=== PATIENT | male | born 1990 | race Two or more races ===

== ENCOUNTER 2025-01-25 22:17 | Emergency (ER) | payer MEDICAID, SELFPAY ==
[2025-01-25 22:18] VITALS: BP 150/90; PULSE 91; RESP 18; TEMP 37.3; O2SAT 97; BMI 30.7
--- NOTE | 2025-01-25 22:52 | PD.EDSKIN ---
ED Skin Abcess FB-RME/HPI General Chief complaint: Skin/Abscess/Foreign Body Stated complaint: REDNESS AND SWELLING TO R LOWER LEG Time Seen by Provider: 01/25/25 22:26 Arrival date/time: 01/25/25 22:17 This is a case of 34-year-old male who came in in the emergency room noted to have redness pain on the right anterior leg no swelling associated with fever and chills patient cannot remember any injury or trauma denies any numbness weakness or tingling sensation denies any other symptoms Limitations: no limitations Related Data Previous Rx's ?Medication ?Instructions ?Recorded ibuprofen 800 mg tablet (IBU) 800 mg PO TID PRN pain #30 tabs 07/28/20 diclofenac sodium 50 mg 50 mg PO BID #20 tabs 04/15/22 tablet,delayed release clindamycin HCl 300 mg capsule 300 mg PO Q6H 10 days #40 caps 01/25/25 doxycycline monohydrate 100 mg 100 mg PO BID 10 days #20 caps 01/25/25 capsule ibuprofen 800 mg tablet 800 mg PO Q8H PRN pain #20 tabs 01/25/25 Allergies Allergy/AdvReac Type Severity Reaction Status Date / Time NKA* Allergy Uncoded 01/25/25 22:22 Review of Systems Review of Systems Systems Reviewed: All systems reviewed, normal except as documented Constitutional Constitutional: Reports system reviewed and no additional complaints, except as documented, Reports as per HPI, Reports chills and Reports fever(s) Cardiovascular Cardiovascular: Reports system reviewed and no additional complaints, except as documented and Reports as per HPI Respiratory Respiratory: Reports system reviewed and no additional complaints, except as documented and Reports as per HPI Gastrointestinal Gastrointestinal: Reports system reviewed and no additional complaints, except as documented, Reports as per HPI and Denies abdominal pain Genitourinary Genitourinary: Reports system reviewed and no additional complaints, except as documented Integumentary/Breasts Skin/Breast: Reports other (Cellulitis) Neurologic Neurologic: Reports system reviewed and no additional complaints, except as documented and Reports as per HPI Past Medical History Past Medical History CARDIAC: Negative Congestive Heart Failure RESPIRATORY: Negative Chronic Obstructive Pulmonary Disease (COPD) GENITOURINARY: Negative Renal Disease ENDOCRINE: Negative Diabetes Mellitus Type 1 or Diabetes Mellitus Type 2 Social History SMOKING STATUS: Never smoker ED Exam General Limitations: Present no limitations General appearance: Present alert, in no apparent distress and other (Patient is awake alert oriented not in distress nontoxic looking well-hydrated well-nourished) Head Head exam: Present atraumatic, normocephalic and normal inspection Eye Eye exam: Present normal appearance, PERRL and EOMI ENT ENT exam: Present normal exam, normal oropharynx, mucous membranes moist and other (Normal HEENT exam) Neck Neck exam: Present normal inspection, full ROM and trachea midline; Absent tenderness, meningismus, lymphadenopathy or thyromegaly Chest Chest inspection: Present normal inspection and symmetric chest wall rise; Absent tenderness Respiratory Respiratory exam: Present normal lung sounds bilaterally; Absent respiratory distress, wheezes, stridor, accessory muscle use or prolonged expiratory phase Cardiovascular Cardiovascular exam: Present regular rate, normal rhythm and normal heart sounds; Absent bradycardia, tachycardia, irregular rhythm, systolic murmur or diastolic murmur Abdominal Exam Abdominal exam: Present soft and normal bowel sounds; Absent distention, tenderness, guarding, rebound, rigidity, diminished bowel sounds, hyperactive bowel sounds, hypoactive bowel sounds or organomegaly Extremities Exam Extremities exam: Present normal inspection and full ROM Expanded Lower Extremity Exam Lower leg exam: Present full ROM, tenderness (Mild tenderness on the anterior right leg) and erythema; Absent swelling, abrasion, laceration, ecchymosis, deformity, crepitus, dislocation, palpable cord, Homans' sign or Achilles tendon intact Back Exam Back exam: Present normal inspection and full ROM Neurological Exam Neurological exam: Present alert, oriented X3, CN II-XII intact, normal gait and reflexes normal; Absent motor sensory deficit Psychiatric Psychiatric exam: Present normal affect and normal mood Skin Skin exam: Present warm, dry, intact, normal color and other (Noted redness approximately 4 x 4 cm right anterior leg suggestive of cellulitis no abscess no wound no ulcer) Course Quality Measures none Orders Category Date Time Status Clindamycin Vial [Cleocin vial] Med 01/25/25 22:48 Once 600 mg IM X1 ONE Ibuprofen Tab [Motrin Tab] Med 01/25/25 22:48 Once 800 mg PO X1 ONE Vital Signs Vital signs: Vital Signs Temperature 99.1 F 01/25/25 22:18 Pulse Rate 91 01/25/25 22:18 Respiratory Rate 18 01/25/25 22:18 Blood Pressure 150/90 H 01/25/25 22:18 Pulse Oximetry (%) 97 01/25/25 22:18 Oxygen Delivery Method Room Air 01/25/25 22:18 Patient is afebrile nontachycardic nontachypneic BP stable not hypoxic oxygen saturation is 97% in room air Skin / Abscess / Foreign Body MDM Narrative MDM Narrative:: This is a case of 34-year-old male who came in in the emergency room noted to have redness pain on the right anterior leg no swelling associated with fever and chills patient cannot remember any injury or trauma denies any numbness weakness or tingling sensation denies any other symptoms physical examination patient is awake alert oriented not in distress nontoxic looking vital signs stable negative meningeal signs lungs sound is clear no crackles no rales no retraction no stridor abdomen soft negative for meningeal signs no signs and symptoms of sepsis dehydration patient noted to have redness on the right anterior leg suggestive of cellulitis no abscess based on my physical examination and history patient fever chills are secondary to cellulitis of the right leg patient was given a dose of clindamycin here in the emergency room and prescribed clindamycin and doxycycline for cellulitis and patient will follow-up in 2 days for evaluation of cellulitis for any worsening symptoms return precaution in the ER was advised Patient was discharged with comfortable condition walking with stable gait. Patient verbalized no further complains explained diagnosis and answered patient question. Patient is comfortable with the proposed management plan including the need to follow up with his/her primary care physician and any specialist if applicable Discussed patient for any urgent condition or worsening sx, He/She needed to go to emergency room immediately or call 911. Patient acknowledge the responsibility to follow up as instructed and to monitor her/his symptoms. For any persistence of the symptoms for more than 3-5 days return precaution advised. Discussed the result of the test and was given printed discharge instruction Patient data External records reviewed:: [facility] previous records Clinical information provided by:: patient Social determinants that could affect healthcare access:: none Patient has the following chronic illnesses:: None How is presenting disease/condition affected by chronic disease/condition?: no chronic disease Evaluation data The following diagnostics were reviewed and interpreted by me:: other (specify) Lab and/or radiology exams considered but not ordered:: None Interpretation Summary: None Medications / Prescriptions Medications or Prescriptions considered but not ordered:: Given Medication administrations:: Medication Administration History Clindamycin Phosphate (Clindamycin Phos Inj 150 Mg/Ml Vial 6 Ml) 600 mg IM X1 ONE Stop: 01/25/25 22:49 Ibuprofen (Ibuprofen Tab 400 Mg Tablet) 800 mg PO X1 ONE Stop: 01/25/25 22:49 Given Consultations Consultation(s) initiated? (list below): No Diagnosis Skin/Abscess Differential Diagnosis: abscess of skin or subcutaneous tissue and cellulitis Most likely diagnosis given after review of the tests above:: Cellulitis Admission Indicated Admission indicated?: not indicated Explain why admission is indicated or not indicated:: Not indicated Admission Request Was there a request for admission?: No Admission Attestation Admission request attestation: Not indicated Disposition Plan Disposition Plan: Discharge Discharge Attestation Discharge Attestation: The patient and all family members were given an opportunity to ask questions and understood the discharge instructions. Discharge instructions specifically effects, indications for sooner follow up or return to the emergency department, and the expected course of current diagnosis. Patient condition: Stable Discharge Plan Plan Patient Disposition: HOME (Self Care) Patient condition on transfer: Stable Prescriptions/Referrals Prescriptions/Med Rec: New clindamycin HCl 300 mg capsule 300 mg PO Q6H 10 Days Qty: 40 0RF doxycycline monohydrate 100 mg capsule 100 mg PO BID 10 Days Qty: 20 0RF ibuprofen 800 mg tablet 800 mg PO Q8H PRN (Reason: pain) Qty: 20 0RF No Action ibuprofen [IBU] 800 mg tablet 800 mg PO TID PRN (Reason: pain) Qty: 30 0RF diclofenac sodium 50 mg tablet,delayed release (DR/EC) 50 mg PO BID Qty: 20 0RF Problem List Clinical Impression: Fever, Cellulitis Patient/Caregiver Discharge Instructions Education Materials: ED Cellulitis, ED FUO Adult Additional Instructions: Follow-up with your primary care physician in 2 days for reevaluation return to the emergency room in 2 days for evaluation of your cellulitis recurrence persistent worsening symptoms or any emergent concern call 911 or go to the nearest emergency room finish the course of antibiotic Tylenol Motrin for fever keep the area clean and dry Print Language: Sammarinese Stand Alone Forms: Mayda Award Info., Patient Portal Info Letter PA/VENTILATION WORKER Supervising Physician PA/VENTILATION WORKER Supervising Physician: dr childers
[2025-01-25] MEDS: CLINDAMYCIN PHOS INJ 150 MG/ML VIAL 6 ML 600 MG IM (23:02)
[2025-01-25] MEDS: IBUPROFEN TAB 400 MG TABLET 800 MG PO (23:02)
--- NOTE | 2025-01-26 | PC.NURSE ---
callled pt for dc and no answer
--- NOTE | 2025-01-26 00:10 | PC.NURSE ---
called pt for dc and no answer
--- NOTE | 2025-01-26 00:27 | PC.NURSE ---
called pt to dc and no answer.
--- NOTE | 2025-01-26 06:54 | PC.NURSE ---
PT LEFT BEFOR RECIEVING DC PAPERS. 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
== END 2025-01-26 00:29 | disposition home or self-care (01) ==
LOC: SERX 23:36
PROVIDERS: Emergency Provider Family Medicine; PCP Family Medicine
DX: L03.115 Cellulitis of right lower limb (principal)
CPT/HCPCS: 96372; 99282; J0736; A9270

== ENCOUNTER 2025-01-27 16:02 | Emergency (ER) | payer MEDICAID, SELFPAY ==
[2025-01-27 16:32] VITALS: BP 131/81; PULSE 61; RESP 18; TEMP 37.2; O2SAT 98; BMI 29.3
--- NOTE | 2025-01-27 16:43 | XR_ITS ---
Examination: Duplex scan of the lower extremity, unilateral right Date and time of exam: January 27, 2025 1650 hours INDICATIONS: Right leg swelling redness and pain beginning 3 days ago Technique: Duplex scan of the extremity veins using B-mode/grayscale imaging and Doppler spectral analysis and color flow Attention is directed to internal echogenicity, compression and augmentation involving these veins, color flow assessment, spectral analysis Findings: Major deep venous structures in the extremity demonstrate normal course and caliber. There is no evidence of deep vein thrombosis. Normal color flow and spectral analysis Impression: Negative for DVT..
--- NOTE | 2025-01-27 16:46 | XR_ITS ---
Examination: Foot, right, 3 views Technique: AP, oblique, lateral views foot, 3 views Date and time of exam: January 27, 2025, 1733 hours INDICATIONS: Right foot redness swelling and pain beginning 3 days ago no trauma FINDINGS: Moderate hallux longus bunion deformity Mild narrowing first metatarsophalangeal joint. No fracture No kenyatta cortical bone destruction IMPRESSION: Moderate hallux valgus bunion deformity No kenyatta cortical bone destruction
--- NOTE | 2025-01-27 16:46 | XR_ITS ---
Examination: Tibia-Fibula, right , 2 views Technique: Tibia-fibula AP lateral 2 views Date and time of exam: January 27, 2025, 1733 hours INDICATIONS: Redness swelling and pain involving the right tibia-fibula beginning 3 days ago, no trauma. FINDINGS: Normal bone density. No fracture or dislocation. No cortical bone destruction. No foreign body IMPRESSION: No cortical bone destruction or foreign body
--- NOTE | 2025-01-27 16:47 | PD.EDRME ---
Rapid Medical Screening Exam RME Arrival date/time: 01/27/25 16:02 34-year-old male presents Emergency Department today for complaints of right lower extremity bruising and swelling Chief Complaint: Wound Recheck / Suture Removal Time Seen by Provider: 01/27/25 16:05 Vital signs: Vital Signs Temperature 98.9 F 01/27/25 16:32 Pulse Rate 61 01/27/25 16:32 Respiratory Rate 18 01/27/25 16:32 Blood Pressure 131/81 H 01/27/25 16:32 Pulse Oximetry (%) 98 01/27/25 16:32 Oxygen Delivery Method Room Air 01/27/25 16:32
[2025-01-27 17:22] LABS: Lactate (Lactic Acid) 0.5 mMol/L (0.4-2.0)
[2025-01-27 17:25] LABS: Basophils # (Auto) 0.0 Thou/mm3 (0.0-0.2); Basophils % (Auto) 1 % (0-2.5); Eosinophils # (Auto) 0.1 Thou/mm3 (0.0-0.5); Eosinophils % (Auto) 2 % (0-10); Hematocrit 42.9 % (41.0-53.0); Hemoglobin 14.0 g/dL (13.5-16.0); Immature Granulocytes Auto 0.01 Thou/mm3 (0.00-0.00); Lymphocytes # (Auto) 1.5 Thou/mm3 (1.0-4.8); Lymphocytes % (Auto) 25 % (10-50); Mean Corpuscular HGB Conc 32.6 g/dl (31.0-37.0); Mean Corpuscular Hemoglobin 28.5 pg (25.0-35.0); Mean Corpuscular Volume 87 fL (80-100); Monocytes # (Auto) 1.1 Thou/mm3 (0.0-0.8); Monocytes % (Auto) 18 % (0-12); Neutrophils # (Auto) 3.4 Thou/mm3 (1.8-7.7); Neutrophils % (Auto) 55 % (37-80); Nucleated Red Blood Cell # 0.00 Thou/mm3 (0.00-0.00); Nucleated Red Blood Cell % 0 /100 WBC (0); Platelet Count 226 Thou/mm3 (140-440); RDW Standard Deviation 41.1 fL (35.1-43.9); Red Blood Count 4.92 Miln/mm3 (4.50-5.90); White Blood Count 6.2 Thou/mm3 (3.8-10.6)
[2025-01-27 17:47] LABS: INR 1.1 (0.9-1.3); Partial Thromboplastin Time 26.3 Seconds (22.0-36.0); Prothrombin Time 11.6 Seconds (9.0-12.2)
[2025-01-27 17:59] LABS: Alanine Aminotransferase 13 U/L (10-49); Albumin, Serum 4.5 gm/dL (3.5-5.0); Albumin/Globulin Ratio 1.9 (1.2-2.2); Alkaline Phosphatase 78 U/L (46-116); Anion Gap 8 (7-16); Aspartate Amino Transferase 21 U/L (0-34); BUN/Creatinine Ratio 14 Ratio (12-20); Bilirubin,Total 0.4 mg/dL (0.3-1.2); Blood Urea Nitrogen 17 mg/dL (9-23); Calcium 10.0 mg/dL (8.3-10.6); Calcium (Corrected) 10.0 mg/dL (8.5-10.1); Carbon Dioxide 29.0 mMol/L (20.0-31.0); Chloride 105 mMol/L (98-107); Creatinine (Component) 1.2 mg/dL (0.6-1.3); Estimated Creatinine Clearance 104.2 mL/min (>60); Globulin 2.4 gm/dL (2.3-3.5); Glucose 84 mg/dL (74-106); Osmolality,Calculated 283 (275-295); Potassium 4.5 mMol/L (3.4-5.1); Procalcitonin 0.13 ng/ml (0.0-0.49); Sodium 142 mMol/L (136-145); Total Protein 6.9 gm/dL (5.7-8.2); eGFR > 60 See Note
--- NOTE | 2025-01-27 19:38 | EDNOTE_ITS ---
ED Wound/Laceration-RME/HPI General Chief Complaint: Wound Recheck / Suture Removal Stated Complaint: WOUND FOLLOW-UP Time Seen by Provider: 01/27/25 16:05 Arrival date/time: 01/27/25 16:02 Limitations: no limitations RME / HPI RME / HPI narrative: Patient is a 34-year-old male is here today for recheck of right lower leg cellulitis. He was seen here 2 days ago and told return for recheck. He states he just picked up his medications today. He has not noted any significant changes since his last visit. He has no other acute complaints. Related Data Previous Rx's ?Medication ?Instructions ?Recorded ibuprofen 800 mg tablet (IBU) 800 mg PO TID PRN pain # 30 tabs 07/28/20 diclofenac sodium 50 mg 50 mg PO BID #20 tabs tablet,delayed release clindamycin HCl 300 mg capsule 300 mg PO Q6H 10 days # 40 caps 01/25/25 doxycycline monohydrate 100 mg 100 mg PO BID 10 days # 20 caps 01/25/25 capsule ibuprofen 800 mg tablet 800 mg PO Q8H PRN pain #20 t abs 01/25/25 Allergies Allergy/AdvReac Type Severity Reaction Status Date / Time NKA* Allergy Uncoded 01/27/25 16:04 Review of Systems Review of Systems Systems Reviewed: All systems reviewed, normal except as documented ED Exam General Limitations: Present no limitations General appearance: Present alert and in no apparent distress Head Head exam: Present atraumatic Eye Eye exam: Present normal appearance, PERRL and EOMI ENT ENT exam: Present normal exam, normal oropharynx and mucous membranes moist Neck Neck exam: Present normal inspection, full ROM and trachea midline Chest Chest inspection: Present normal inspection and symmetric chest wall rise Respiratory Respiratory exam: Present normal lung sounds bilaterally Cardiovascular Cardiovascular exam: Present regular rate, normal rhythm and normal heart sounds Abdominal Exam Abdominal exam: Present soft and normal bowel sounds Extremities Exam Extremities exam: Present normal inspection and full ROM Back Exam Back exam: Present normal inspection and full ROM Neurological Exam Neurological exam: Present alert and oriented X3 Psychiatric Psychiatric exam: Present normal affect and normal mood Skin Skin exam: Present dry and other (There is very mild erythematous mottling of the right anterior lower leg with surrounding edema. Very mild warmth is present. Skin surface is otherwise intact) Course Quality Measures none Orders Category Date Time Status US venous doppler LE RT Stat Exams 01/27/25 16:43 Completed XR foot comp RT min 3V Stat Exams 01/27/25 16:46 Completed XR tibia fibula RT 2V Stat Exams 01/27/25 16:46 Completed Blood Culture (Lab) Stat Lab 01/27/25 17:06 Received CBC Stat Lab 01/27/25 17:11 Completed Cocci Serology IgM with reflex to IgG [Cocci Serology, Lab 01/27/25 17:11 Received Unk History] Stat Comprehensive Metabolic Panel Stat Lab 01/27/25 17:11 Completed Lactic Acid [Lactate (Lactic Acid)] Stat Lab 01/27/25 17:11 Completed Partial Thromboplastin Time Stat Lab 01/27/25 17:11 Completed Procalcitonin Stat Lab 01/27/25 17:11 Completed Prothrombin Time with INR Stat Lab 01/27/25 17:11 Completed Vital Signs Vital signs: Vital Signs Temperature 98.9 F 01/27/25 16:32 Pulse Rate 61 01/27/25 16:32 Respiratory Rate 18 01/27/25 16:32 Blood Pressure 131/81 H 01/27/25 16:32 Pulse Oximetry (%) 98 01/27/25 16:32 Oxygen Delivery Method Room Air 01/27/25 16:32 Wound / Laceration MDM Narrative MDM Narrative:: Patient is a 34-year-old male is here today for recheck of right lower leg cellulitis. He was seen here 2 days ago and told return for recheck. He states he just picked up his medications today. He has not noted any significant changes since his last visit. He has no other acute complaints. On exam, patient has very mild erythema and edema of the right lower leg. There is mottling pattern of erythema at the right anterior lower leg. Ultrasound was obtained and is negative for DVT. Plain phones are unremarkable. Workup is essentially unremarkable here. Patient was vies to continue his antibiotics. Follow-up with his primary doctor within the next 1 to 2 weeks. Return anytime for any worsening or emergent changes. Patient data External records reviewed:: [facility] previous records Clinical information provided by:: patient Social determinants that could affect healthcare access:: none Patient has the following chronic illnesses:: n/a How is presenting disease/condition affected by chronic disease/condition?: uneffected by Evaluation data The following diagnostics were reviewed and interpreted by me:: lab results and radiology exam(s) Lab and/or radiology exams considered but not ordered:: n/a Interpretation Summary: Unremarkable workup Medications / Prescriptions Medications or Prescriptions considered but not ordered:: n/a Medication administrations:: n/a Consultations Consultation(s) initiated? (list below): No Diagnosis Wound Differential Diagnosis: abscess and avulsion of skin Most likely diagnosis given after review of the tests above:: Recheck cellulitis Admission Indicated Admission indicated?: not indicated Admission Request Was there a request for admission?: No Disposition Plan Disposition Plan: Discharge Discharge Attestation Discharge Attestation: The patient and all family members were given an opportunity to ask questions and understood the discharge instructions. Discharge instructions specifically effects, indications for sooner follow up or return to the emergency department, and the expected course of current diagnosis. Patient condition: Stable Discharge Plan Plan Patient Disposition: HOME (Self Care) Patient condition on transfer: Stable Prescriptions/Referrals Prescriptions/Med Rec: No Action ibuprofen [IBU] 800 mg tablet 800 mg PO TID PRN (Reason: pain) Qty: 30 0RF diclofenac sodium 50 mg tablet,delayed release (DR/EC) 50 mg PO BID Qty: 20 0RF clindamycin HCl 300 mg capsule 300 mg PO Q6H 10 Days Qty: 40 0RF doxycycline monohydrate 100 mg capsule 100 mg PO BID 10 Days Qty: 20 0RF ibuprofen 800 mg tablet 800 mg PO Q8H PRN (Reason: pain) Qty: 20 0RF Referrals: Cristino Pagan MD [Primary Care Provider] - In 1 week Problem List Clinical Impression: Cellulitis Patient/Caregiver Discharge Instructions Additional Instructions: - Continue current therapies. - Contact your primary clinic to schedule close follow-up appointment. - Return at anytime for any worsening or emergent changes Print Language: Japanese Stand Alone Forms: Mayda Award Info., Patient Portal Info Letter
[2025-01-28 12:05] LABS: Cocci Serology, IgM Positive (Negative)
[2025-01-28 12:06] LABS: Cocid Sro, CF/ID (UCD) NO CHG* See Sep Rpt
== END 2025-01-27 19:44 | disposition home or self-care (01) ==
PROVIDERS: Nurse Practitioner Primary Care; Emergency Provider Emergency Medicine; PCP Family Medicine
DX: L03.115 Cellulitis of right lower limb (principal)
CPT/HCPCS: 36415; 73590; 73630; 80053; 83605; 84145; 85025; 85610; 85730; 86635; 87040; 93971; 99283